=== PATIENT | male | born 1995 | race Caucasian/White ===

== ENCOUNTER 2023-10-28 20:30 | Emergency (ER) | payer BC, SELFPAY ==
--- NOTE | ~2023-10-28 | XR_ITS ---
EXAMINATION: XR CHEST CLINICAL INFORMATION: Chest pain, shortness of breath. COMPARISON: None available. TECHNIQUE: Frontal view of the chest was obtained. FINDINGS: The lungs are clear. The cardiomediastinal silhouette is normal in size. There is no pleural effusion or pneumothorax. No acute osseous abnormality. XR/XR chest 1V IMPRESSION: No acute cardiopulmonary findings.
--- NOTE | 2023-10-28 20:34 | ECG_ITS ---
Test Reason : CHEST PAIN Blood Pressure : / mmHG Vent. Rate : 144 BPM Atrial Rate : 144 BPM P-R Int : 132 ms QRS Dur : 080 ms QT Int : 260 ms P-R-T Axes : 043 045 027 degrees QTc Int : 402 ms Poor data quality Sinus tachycardia No previous ECGs available Referred By: Lora Brunner Electronically Signed By:YAHAIRA CORBETT MD
[2023-10-28 20:37] VITALS: BMI 30.7
[2023-10-28] MEDS: 0.9 % Sodium Chloride 1,000 ML 999 ML IVCONT ×2 (20:40→23:07)
[2023-10-28 20:46] VITALS: BP 142/76; PULSE 141; RESP 14; O2SAT 97
[2023-10-28 20:47] VITALS: TEMP 36.9
[2023-10-28] MEDS: LORazepam 2 MG/ML VIAL IVPUSH (20:47)
[2023-10-28 20:49] VITALS: PULSE 150; BMI 30.7
[2023-10-28 20:52] LABS: MANUAL DIFF FLAG NO
--- NOTE | 2023-10-28 20:53 | PC.NURSE ---
pt biba from home after smoking weed (from dispensary) with c/o heart racing. for ems pt 150s, given 18mg adenosine, 324 aspirin , 500 ml ns. on arrival pt is axox4, sinus tachy on ekg. 2nd iv established. ekg obtained. labs sent. ivf infusing. pt medicated per mar. pt does report thoughts of SI. denies plan, denies HI. pt reports he will occasionally do stupid things that may result in being hurt however denies actively acting on thoughts. pt reports he has been struggling with this for years but unable to find resources to help. pt denies taking any meds daily. telecommunications network engineer and MD notified. pt to be changed over and need for sitter at this time.
[2023-10-28 20:57] LABS: Basophils Absolute Auto 0.1 X10*3/uL (0.0-0.2); Basophils Percent Auto 0.6 % (0-2); Eosinophils Absolute Auto 0.1 X10*3/uL (0.0-0.4); Eosinophils Percent Auto 0.7 % (0-4); Hemoglobin 15.8 g/dl (14.0-18.0); Imm Gran Abs Auto 0.04 X10*3/uL (0.00-0.03); Imm Gran Pct Auto 0.5 % (0.0-0.4); Lymphocytes Absolute Auto 2.7 X10*3/uL (1.2-4.9); Lymphocytes Percent Auto 32.6 % (20-40); Mean Corpuscular HGB Conc 34.3 g/dl (31.0-36.0); Mean Corpuscular Hemoglobin 27.4 pg (27.0-33.0); Mean Corpuscular Volume 79.7 fL (80.0-98.0); Mean Platelet Volume 8.9 fL (9.4-12.4); Monocytes Absolute Auto 0.6 X10*3/uL (0.1-1.2); Monocytes Percent Auto 6.8 % (2-11); Neutrophils Absolute Auto 4.9 x10*3/uL (2.0-8.3); Neutrophils Percent Auto 58.8 % (45-73); Platelet Count 289 X10*3/uL (160-400); Red Blood Count 5.77 X10*6/uL (4.60-5.80); Red Cell Distribution Width 12.4 % (11.0-16.0); White Blood Count 8.3 X10*3/uL (4.8-10.8)
[2023-10-28 21:06] LABS: Prothrombin Time 11.7 SEC (11.1-13.3)
--- NOTE | 2023-10-28 21:15 | PC.NURSE ---
pt changed over by security. belongings secured in pod locker 5. pt has 1:1 sitter at bedside. nad. sinus tachy on monitor. vss. Dr. Brunner aware.
[2023-10-28 21:28] LABS: Appearance Urine Clear; Color Urine Yellow; Glucose Urine UA Negative (Negative); Leukocyte Esterase Urine Negative (Negative); Nitrite Urine Negative (Negative); Urine Blood Negative (Negative); Urine Ketones Negative (Negative); Urine Protein Negative (Neg-Trace)
[2023-10-28 21:31] LABS: Alanine Aminotransferase 53 U/L (0-40); Albumin Level 4.6 g/dL (3.5-5.0); Alkaline Phosphatase 58 U/L (39-117); Anion Gap 16 (12-20); Aspartate Amino Transferase 33 U/L (5-37); Bilirubin Direct 0.3 mg/dL (0.0-0.5); Bilirubin Total 0.8 mg/dL (0.0-1.0); Blood Urea Nitrogen 12 mg/dL (9-16); Calcium 9.4 mg/dL (8.4-10.2); Carbon Dioxide 24 mmol/L (22-29); Chloride 105 mmol/L (96-108); Creatinine Clr Calc Pharmacy 154.7; Estimated Glomerular Filt Rate > 60; Ethanol < 10 mg/dL; Glucose Random 162 mg/dL (60-115); Magnesium 1.8 mg/dL (1.6-2.6); Potassium 3.2 mmol/L (3.3-5.1); Sodium 142 mmol/L (135-145); Total Protein 7.3 g/dL (6.5-8.0)
[2023-10-28 21:33] LABS: B Type Natriuretic Peptide < 10 pg/mL (<100)
[2023-10-28 21:37] LABS: Amphetamine Screen Urine Not Detected (Not Detect); Barbiturates, Urine Not Detected (Not Detect); Benzodiazepines Screen Urine Not Detected (Not Detect); Buprenorphine Scr Not Detected (Not Detect); Cannabinoid Screen Urine POSITIVE (Not Detect); Cocaine Screen Urine Not Detected (Not Detect); Fentanyl, urine Not Detected (Not Detect); Methadone Screen, Urine Not Detected (Not Detect); Opiate Screen Urine POSITIVE (Not Detect); Oxycodone Screen Urine Not Detected (Not Detect); Phencyclidine Screen Urine Not Detected (Not Detect)
[2023-10-28 21:38] LABS: Troponin-I High Sensitivity < 2.7 ng/L (<3.5-35.0)
[2023-10-28 22:09] VITALS: PULSE 140
--- NOTE | 2023-10-28 22:37 | PC.NURSE ---
pt remains sinus tach on monitor after 1L NS Bolus. Dr. Brunner aware. verbal order for 1L Normal Saline bolus. pt denies cp/sob/n/v/d. pt is axox4, calm/cooperative.
[2023-10-28 22:44] VITALS: BP 128/49; PULSE 134; RESP 16; TEMP 37.2; O2SAT 93
[2023-10-28] MEDS: 0.9 % Sodium Chloride 1,000 ML 999 ML IV (22:44)
[2023-10-28] MEDS: Potassium Chloride Packet 20 MEQ PACKET 40 MEQ PO (23:07)
--- NOTE | 2023-10-28 23:57 | ED_ITS ---
HPI - General Adult General Chief complaint: General Medical Stated complaint: chest discomfort post smoking tereso camacho(150) Time Seen by Provider: 10/28/23 20:40 Source: patient and EMS Mode of arrival: EMS Limitations: no limitations History of Present Illness ED Provider: Dr. Lora Brunner HPI narrative: Patient comes to the emergency room via ambulance complaining of palpitations. According to EMS, patient reports smoking weed approximately at 19:30. Patient started feeling heart racing, no chest pain or shortness of breath. Patient called 911, EMS reported that the patient's heart rate was in the 150s, patient was given a dose of adenosine 6 mg and then 12 mg without any result. Then patient was given an aspirin 324 mg and 500 mL of normal saline. On arrival, patient states that he feels a bit jittery, no chest pain or shortness of breath. Patient complaining of suicidal ideation with no plan. Related Data Allergies Allergy/AdvReac Type Severity Reaction Status Date / Time No Known Allergies Allergy Verified 10/28/23 20:52 Review of Systems 2 Review of Systems: Constitutional : No Weight loss, No Fever, No Chills, No Night Sweats, No Fatigue, No Malaise, complaining of feeling jittery ENT/Mouth : No Hearing loss, No Ear Pain, No Nasal Congestion, No Sinus Pain, No Hoarseness, No sore throat, No Rhinorrhea, No Swallowing Difficulty Eyes: No Eye Pain, No Swelling, No Redness, No Foreign Body, No Discharge, No Vision Changes Cardiovascular : No Chest Pain, No SOB, No Dyspnea on Exertion, No Orthopnea, No Edema, No Palpitations Respiratory : No Cough, No Sputum, No Wheezing, No Smoke Exposure, No Dyspnea Gastrointestinal : No Nausea, No Vomiting, No Diarrhea, No Constipation, No abdominal Pain, No Hematochezia, No Melena Genitourinary : no irregular bleeding, No Dysuria, No Urinary Frequency, No Hematuria, No Urinary Incontinence, No Urgency, No Flank Pain, No Urinary Flow Changes, No Hesitancy Musculoskeletal : No joint pain, No Myalgias, No Joint Swelling Skin : No Skin Lesions, No rash Neuro : No Weakness, No Numbness, No Paresthesias, No Loss of Consciousness, No Dizziness, No Headache Psych : No Anxiety/Panic, of SI, no HI, admits to using marijuana earlier today. Heme/Lymph: No Bruising, No Bleeding,No Lymphadenopathy Endocrine : No Polyuria, No Polydipsia, No Temperature Intolerance [facility] Past Medical History Medical History (Updated 10/29/23 @ 00:32 by Lora Brunner MD) Marijuana abuse Social History Social History Smoked in Last 30 Days: No Use of substances other than those prescribed or required for medical reasons: Yes Substance Use Type: Marijuana Advance Directives: No Advance Directives Information Provided: Yes Do you have a plan to hurt others: No Plan Physical Exam ED Vital Signs: Vital Signs - 24 hr 10/28/23 20:46 10/28/23 20:47 10/28/23 22:09 Temperature 98.4 F Pulse Rate 141 H Pulse Rate [Monitor] 140 H Respiratory Rate 14 Blood Pressure 142/76 H Pulse Oximetry 97 Oxygen Delivery Method Room Air 10/28/23 22:44 10/28/23 23:59 10/29/23 00:15 Temperature 99 F 98.6 F Pulse Rate 134 H 120 H 108 H Pulse Rate [Monitor] Respiratory Rate 16 18 16 Blood Pressure 128/49 L 116/63 Pulse Oximetry 93 95 98 Oxygen Delivery Method Room Air Room Air Room Air BMI result Body Mass Index 30.7 Const Other: Appearance: Alert. Oriented X3. No acute distress. Eyes: Pupils equal, round and reactive to light. ENT: Pharynx normal. Neck: Normal inspection. Neck supple. No lymph nodes noted. No crepitus CVS: Normal heart rate and rhythm. Pulses normal. Normal S1 and S2 Respiratory: No respiratory distress. Breath sounds normal. No Wheezing. No rales Abdomen: Soft and nontender. No rigidity. No distention. Skin: Skin warm and dry. Normal skin color. Normal skin turgor. Extremities: No lower extremity edema. No Lacerations. No Rash Neuro: Oriented X 3. No motor deficit. No sensory deficit. Moving all extremities. No slurred speech. CN 2 through 12 grossly intact Psych: calm, cooperative, normal affect Course Course Course Narrative: -pt received 3L NA Medications Administered Generic Name Dose Route Start Last Admin Trade Name Freq PRN Reason Stop Dose Admin Sodium Chloride 1,000 mls @ 999 mls/hr 10/28/23 22:45 10/29/23 00:15 Ns IV 10/28/23 23:45 Infused .Q1H1M REZA Infusion Sodium Chloride 1,000 mls @ 999 mls/hr 10/28/23 22:56 10/29/23 00:15 Ns IVCONT 10/28/23 23:56 Infused .Q1H1M ONE Infusion Discontinued Medications Generic Name Dose Route Start Last Admin Trade Name Quentin PRN Reason Stop Dose Admin Sodium Chloride 1,000 mls @ 999 mls/hr 10/28/23 20:40 10/28/23 22:37 Ns IVCONT 10/28/23 21:40 Infused .Q1H1M ONE Infusion Lorazepam 2 mg 10/28/23 20:40 10/28/23 20:47 Lorazepam 2 Mg/Ml Vial IVPUSH 10/28/23 20:41 2 mg ONCE ONE Administration Potassium Chloride 40 meq 10/28/23 22:57 10/28/23 23:07 Potassium Chloride Packet 20 Meq Packet PO 10/28/23 22:58 40 meq ONCE ONE Administration Medical Decision Making Medical Decision Making MDM Narrative: -my interpretation of labs, normal hematology, chemistry fairly normal, potassium 3.2, patient was given p.o. potassium. Troponin and BNP within normal limits. Urinalysis negative for UTI, positive for opiates and marijuana. Negative for EtOH -patient requesting to see the care team -current a rate 114, likely secondary to marijuana abuse. -patient complaining of vague suicidal ideation. Care team consult pending -physician observation started at 00:30 Differential Diagnosis Differential Diagnoses: The differential diagnosis associated with the presentation includes (Marijuana abuse, anxiety, depression, SI) Admission/Observation Consideration of admission/observation: Escalation of care including admission/observation considered (Patient under physician observation waiting to be seen by the care team) Lab Data [facility] Lab Attestation statement: I reviewed the patient's lab results. 10/28/23 20:45 10/28/23 20:45 Labs: Lab Results 10/28/23 10/28/23 Range/Units 20:45 21:18 WBC 8.3 (4.8-10.8) X10*3/uL RBC 5.77 (4.60-5.80) X10*6/uL Hgb 15.8 (14.0-18.0) g/dl Hct 46.0 (42.0-52.0) % MCV 79.7 L (80.0-98.0) fL MCH 27.4 (27.0-33.0) pg MCHC 34.3 (31.0-36.0) g/dl RDW 12.4 (11.0-16.0) % Plt Count 289 (160-400) X10*3/uL MPV 8.9 L (9.4-12.4) fL Immature Gran % (Auto) 0.5 H (0.0-0.4) % Neut % (Auto) 58.8 (45-73) % Lymph % (Auto) 32.6 (20-40) % [place] % (Auto) 6.8 (2-11) % Eos % (Auto) 0.7 (0-4) % Baso % (Auto) 0.6 (0-2) % Lymph # (Auto) 2.7 (1.2-4.9) X10*3/uL [place] # (Auto) 0.6 (0.1-1.2) X10*3/uL Eos # (Auto) 0.1 (0.0-0.4) X10*3/uL Baso # (Auto) 0.1 (0.0-0.2) X10*3/uL Abs Immat Gran (auto) 0.04 H (0.00-0.03) X10*3/uL Absolute Neuts (auto) 4.9 (2.0-8.3) x10*3/uL Absolute Nucleated RBC 0.000 (0.0-0.012) X10*3/uL Nucleated RBC % (auto) 0.0 (0.0-0.2) /100WBC PT 11.7 (11.1-13.3) SEC INR 1.0 (0.9-1.1) Sodium 142 (135-145) mmol/L Potassium 3.2 L (3.3-5.1) mmol/L Chloride 105 (96-108) mmol/L Carbon Dioxide 24 (22-29) mmol/L Anion Gap 16 (12-20) BUN 12 (9-16) mg/dL Creatinine 0.84 (0.5-1.4) mg/dL Estim Creat Clear Calc 154.7 Estimated GFR > 60 Random Glucose 162 H (60-115) mg/dL Calcium 9.4 (8.4-10.2) mg/dL Magnesium 1.8 (1.6-2.6) mg/dL Total Bilirubin 0.8 (0.0-1.0) mg/dL Direct Bilirubin 0.3 (0.0-0.5) mg/dL AST 33 (5-37) U/L ALT 53 H (0-40) U/L Alkaline Phosphatase 58 (39-117) U/L Troponin I High Sens < 2.7 (<3.5-35.0) ng/L B-Natriuretic Peptide < 10 (<100) pg/mL Total Protein 7.3 (6.5-8.0) g/dL Albumin 4.6 (3.5-5.0) g/dL Urine Color Yellow Urine Appearance Clear Urine pH 6.0 (5.0-9.0) Ur Specific [place] 1.010 (1.005-1.025) Urine Protein Negative (Neg-Trace) mg/dL Urine Glucose (UA) Negative (Negative) mg/dL Urine Ketones Negative (Negative) mg/dL Urine Blood Negative (Negative) Urine Nitrite Negative (Negative) Ur Leukocyte Esterase Negative (Negative) Urine Opiates Screen POSITIVE H (Not Detect) Ur Buprenorphine Scrn Not Detected (Not Detect) ng/mL Ur Oxycodone Screen Not Detected (Not Detect) ng/mL Urine Methadone Screen Not Detected (Not Detect) ng/mL Urine Fentanyl Screen Not Detected (Not Detect) Ur Barbiturates Screen Not Detected (Not Detect) Ur Phencyclidine Scrn Not Detected (Not Detect) Ur Amphetamines Screen Not Detected (Not Detect) U Benzodiazepines Scrn Not Detected (Not Detect) Urine Cocaine Screen Not Detected (Not Detect) U Marijuana (THC) Screen POSITIVE H (Not Detect) Ethyl Alcohol < 10 mg/dL Critical Care Time Critical Care Time Critical Care Time: Yes Total Critical Care Time: 45 Attestation: I have personally provided critical care time. Time includes review of lab data, radiology results, discussion with consultants, and monitoring for potential decompensation. Intervention performed as documented. Discharge Plan Discharge Clinical Impression: Marijuana abuse, Suicidal ideation Patient Disposition: Still a Patient Print Language: [place]
[2023-10-28 23:59] VITALS: BP 116/63; PULSE 120; RESP 18; TEMP 37; O2SAT 95
[2023-10-29 00:15] VITALS: PULSE 108; RESP 16; O2SAT 98
[2023-10-29 02:23] VITALS: BP 121/76; PULSE 103; RESP 20; TEMP 36.9; O2SAT 97
[2023-10-29 03:16] VITALS: BP 121/76; PULSE 98; RESP 20; TEMP 36.9; O2SAT 97
== END 2023-10-29 03:16 | disposition home or self-care (01) ==
PROVIDERS: Emergency Provider Emergency Medicine
DX: F12.10 Cannabis abuse, uncomplicated (principal); R45.851 Suicidal ideations; R07.9 Chest pain, unspecified; R06.02 Shortness of breath
CPT/HCPCS: 36415; 71045; 80048; 80076; 80307; 81003; 83735; 83880; 84484; 85025; 85610; 93005; 96361; 96374; 99285; J2060; S9485

== ENCOUNTER → 2023-10-28 20:34 | Outpatient (BNV) | payer SELFPAY | PROVIDERS: Emergency Provider Emergency Medicine; Visit Provider Internal Medicine Cardiovascular Disease | DX: R07.9 Chest pain, unspecified (principal) | CPT/HCPCS: 93010 ==